=== PATIENT | female | born 1990 | race Two or more races ===

== ENCOUNTER 2022-10-14 16:00 | Emergency (ER) | payer OTHER, MEDICAID ==
[~2022-10-14] VITALS: Ht 170.2 cm; Wt 134.5 kg
[2022-10-14 17:12] LABS: Urine Bacteria FEW /hpf (None Seen); Urine Blood Negative /uL (Negative); Urine Mucus FEW (None Seen); Urine WBC 1 /hpf (0 - 5)
[2022-10-14] MEDS ORDERED: ACET-1158 PO (19:35)
[2022-10-14 20:01] VITALS: BP 130/80
[2022-10-14 20:05] LABS: Basophils # (auto) 0 10 ^3/uL (0-0.2); Eosinophils # (auto) 0 10 ^3/uL (0-0.8); Lymphocytes # (auto) 0.5 10 ^3/uL (0.4-5.4); Neutrophils # (auto) 5.5 10 ^3/uL (1.6-8.6)
[2022-10-14 20:06] LABS: Basophils % (auto) 0.1 % (0.0-2.0); Hemoglobin 12.9 g/dL (12.2-16.2); Lymphocytes % (auto) 7.7 % (10.0-50.0); Mean Corpuscular Hemoglobin 26.5 pg (28.0-32.0); Mean Corpuscular Volume 80.2 fL (80.0-100.0); Monocytes # (auto) 0.3 10 ^3/uL (0-1.3); Monocytes % (auto) 4.3 % (0.0-12.0); Neutrophils % (auto) 87.9 % (37.0-80.0); Red Blood Cells 4.86 10^6/uL (4.0-5.20); Red Cell Distribution Width 15.2 % (11.8-14.3); White Blood Cell 6.3 10^3/uL (4.4-10.8)
[2022-10-14 20:30] LABS: Albumin 3.4 g/dL (3.4-5.0); Calcium 8.8 mg/dL (8.5-10.1); Potassium 3.9 mmol/L (3.5-5.1)
[2022-10-14 20:35] LABS: Bilirubin, Total 0.6 mg/dL (0.2-1.0); Total Protein 7.7 g/dL (6.4-8.2)
[2022-10-16 08:06] LABS: RPR Non Reactive (Non Reactive)
== END 2022-10-15 00:16 | disposition home or self-care (01) ==
LOC: ER 16:00
DX: O26.891 Other specified pregnancy related conditions, first trimester (principal); S16.1XXA Strain of muscle, fascia and tendon at neck level, initial encounter; S39.012A Strain of muscle, fascia and tendon of lower back, initial encounter; R10.2 Pelvic and perineal pain; Z3A.01 Less than 8 weeks gestation of pregnancy; V43.52XA Car driver injured in collision with other type car in traffic accident, initial encounter; Y93.89 Activity, other specified; Y92.488 Other paved roadways as the place of occurrence of the external cause; Y99.8 Other external cause status
CPT/HCPCS: 36415; 76801; 76817; 80053; 81001; 84702; 85025; 86592